=== PATIENT | female | born 1950 | race Caucasian/White ===

== ENCOUNTER 2016-12-14 13:42 | Emergency (ER) | payer BC, MEDICARE ==
[~2016-12-14 13:42] MED LIST: ASPIRIN; ATENOLOL; KEFLEX; METFORMIN HCL500 M1; SYNTHROID; TUSSIONEX PENN473 ML PO; VICODIN 5/500 T1 TAB PO; ZITHROMAX1 G/PKT PO
== END 2016-12-14 14:54 | disposition home or self-care (01) ==
LOC: CED 13:42
DX: K59.00 Constipation, unspecified (principal); E11.9 Type 2 diabetes mellitus without complications; I10 Essential (primary) hypertension; K21.9 Gastro-esophageal reflux disease without esophagitis; Z90.710 Acquired absence of both cervix and uterus; Z95.1 Presence of aortocoronary bypass graft; Z88.5 Allergy status to narcotic agent
CPT/HCPCS: 99282

== ENCOUNTER 2017-05-14 19:49 | Emergency (ER) | payer BC, MEDICARE ==
[~2017-05-14] VITALS: Ht 160 cm; Wt 117.9 kg
== END 2017-05-14 21:05 | disposition home or self-care (01) ==
LOC: CFTX 19:49 → CED 19:49 → CFTX 20:42
DX: S16.1XXA Strain of muscle, fascia and tendon at neck level, initial encounter (principal); E11.9 Type 2 diabetes mellitus without complications; K21.9 Gastro-esophageal reflux disease without esophagitis; I11.9 Hypertensive heart disease without heart failure; Z90.49 Acquired absence of other specified parts of digestive tract; Z95.1 Presence of aortocoronary bypass graft; Z90.710 Acquired absence of both cervix and uterus; Z88.5 Allergy status to narcotic agent; X58.XXXA Exposure to other specified factors, initial encounter; Y92.9 Unspecified place or not applicable
CPT/HCPCS: 96372; 99283; J1885

== ENCOUNTER 2017-05-16 23:01 | Emergency (ER) | payer BC, MEDICARE ==
--- NOTE | ~2017-05-16 | CT52 ---
[facility] A Service [facility] RADIOLOGY TEXT RESULTS PATIENT: EPTRA MANUEL LOCATION: [facility] : 46 UNIT #: [id number] AGE: [address]: NEAL MARROQUIN APRN SEX: F ORDER DR: [id number] [facility] [address] [place], [place] [address] [id number] MR#: [id number] #: [id number] NAME: PETRA MANUEL : 1950 SEX: F STUDY DATE/TIME: 05/17/2017 1:59 UNIT: [facility] ROOM: STUDY DESCRIPTION: CT Cervical Spine Wo Cont Attending Physician: Neal Marroquin Aprn Ordering Physician: Neal Marroquin Aprn Primary Care Physician: Pedro Leblanc M.D. MEDICAL IMAGING REPORT This report is preliminary unless electronic signature is present EXAM CT cervical spine without contrast HISTORY Neck pain for 3 days. No injury. FINDINGS This CT examination was performed with one or more of the following radiation dose reduction techniques: automatic exposure control, adjustment of mA and/or kV according to patient size, and iterative reconstruction. CT cervical spine without contrast demonstrates moderate degenerative disc space narrowing at C5-6 and mild disc space narrowing at C6-7. Moderate sized broad-based marginal osteophyte at C5-6, causes moderately severe to severe bilateral outlet foraminal narrowing. [id number] multilevel degenerative facet arthropathy in the upper and lower cervical spine, greater at C2-3 and C3-4. No fracture or subluxation. Moderately severe degenerative changes at the anterior junction of C1-2. No precervical soft tissue swelling. IMPRESSION 1. No acute findings. 2. No fracture. 3. Moderately severe bilateral bony outlet foraminal narrowing at C5-6 secondary to broad-based marginal osteophyte and to a lesser degree facet hypertrophy. 4. Additional degenerative and hypertrophic changes as described. 5. Moderately advanced degenerative disc space narrowing at C5-6 and mild disc space narrowing at C6-7. [facility] A Service [facility] RADIOLOGY TEXT RESULTS PATIENT: PETRA MANUEL LOCATION: [facility] : 46 UNIT #: [id number] AGE: [address]: NEAL MARROQUIN APRN SEX: F ORDER DR: Dictated by... Jayme Frances M.D. THIS IS AN ELECTRONICALLY VERIFIED REPORT aJyme Frances M.D. at 05/18/2017 4:17 AM JOHNNIE/stefanie TD: 05/17/2017 09:07 JOB #: [id number] MEDICAL IMAGING REPORT Page 1 of 1 COPY
== END 2017-05-17 03:18 | disposition home or self-care (01) ==
LOC: CED 23:01
DX: M50.31 Other cervical disc degeneration, high cervical region (principal); E11.9 Type 2 diabetes mellitus without complications; I10 Essential (primary) hypertension; Z90.49 Acquired absence of other specified parts of digestive tract; Z95.1 Presence of aortocoronary bypass graft; Z88.5 Allergy status to narcotic agent
CPT/HCPCS: 72125; 82947; 96372; 99284; J2270; J3360